=== PATIENT | male | born 1955 | race Caucasian/White ===

== ENCOUNTER 2025-04-21 19:04 | Emergency (ER) | payer MEDICARE, SELFPAY ==
[2025-04-21 19:19] VITALS: BP 170/92
[2025-04-21 19:49] LABS: Urine Character Clear (Clear)
[2025-04-21 20:02] LABS: Urine Squamous Cell 0-2 /LPF (Few); Urine White Cell 0-2 /HPF (0-5)
--- NOTE | 2025-04-21 21:38 | ED.GENMED ---
History of Present Illness
General
Chief Complaint: Male Genito-Urinary Symptoms
Source: patient
Exam Limitations: none
Time Seen by Provider: 04/21/25 19:21
Nursing documentation reviewed up to this point in time: agreed with
History of Present Illness
History of Present Illness:
Patient to ED with complaint of urinary retention. States he follows with urology in [facility]. He has a history of retention. Took Tamsulosin for many years. Med recently d/c'd by urology. He states he had an US today at visit in [place] and was told
there was sludge in bladder. States he drove home from [facility] and since arriving home he has not been able to void. Last output was 2PM. To ED for redman placement.
Past History
Past History
ED Past Medical History: None
Review of Systems
Review of Systems
Allergies reviewed?: Yes
All Other Systems: ROS reviewed and negative except as documented in HPI and ROS
Constitutional: Reports no symptoms
EENT: Reports no symptoms
Respiratory: Reports no symptoms
Cardiac: Reports no symptoms
ABD/GI: Reports no symptoms
: Reports difficulty voiding
Musculoskeletal: Reports no symptoms
Skin: Reports no symptoms
Neurological: Reports no symptoms
Psychiatric: Reports no symptoms
Phy Exam
General Physical Exam
General Presentation: moderate distress
General age: appears stated age
General Skin: warm and dry
General Habitus: normal
Gastrointestinal Exam
Gastrointestinal Exam: distended
Musculoskeletal Exam
Musculoskeletal Exam: full ROM and neuro vasc intact
Skin Exam
Skin Exam: normal color and warm/dry
Psychiatric Exam
Psychiatric Exam: normal mood/affect
Course
Orders/Labs/Results
Orders:
Orders
04/21/25 19:24
Redman Placement- Treatment ONCE
Reason for insertion: Acute Retention
04/21/25 19:42
Urinalysis Reflex To Culture Urgent
Date Specimen was Collected: 04/21/25
Time Specimen was Collected: 19:26
Urine Microscopic Reflex Cult Urgent
Abnormal Lab Results
04/21/25
19:42
Urine Ketones 1+ A
(Negative)
Ur Occult Blood Reflex 4+ A
(Negative)
Urine RBC 3-6 A /HPF
(0-2)
Urine Bacteria (Reflex) Few A
(Negative)
Vital Signs
Initial and Last Documented VS:
Initial Vital Signs
Temp Pulse Resp BP Pulse Ox
98.3 F 105 20 170/92 98
04/21/25 19:19 04/21/25 19:19 04/21/25 19:19 04/21/25 19:19 04/21/25 19:19
Last Documented Vital Signs
Temp Pulse Resp BP Pulse Ox
98.3 F 105 20 170/92 98
04/21/25 19:19 04/21/25 19:19 04/21/25 19:19 04/21/25 19:19 04/21/25 19:19
*Pulse Oximetry
SaO2: 98
Oxygen Mode of Delivery: Room air
Patient hypoxic: no
*Critical Care Note
Total Time (30-74mins, 75-104mins- exclusive of procedures): Not Applicable
Update Note
Update Note:
Patient to ED with complaint of urinary retention. 1L noted on bladder scan. Redman placed bedside by RN, draining clear yellow urine. No UTI reflected on UA. He is now symptom free. WIll discharge home. He spoke with his urologist and he will
follow up on Monday for redman removal.
ED Attending Note
-
Portions of this chart may have been created with voice recognition software.� Occasional wrong word or��sound alike� substitutions may have occurred due to the inherent limitations of voice recognition software.
Discharge Plan
Departure
Patient Disposition: Home (Routine Discharge)
Date of Disposition: 04/21/25
Time of Disposition: 20:08
Patient with high blood pressure during this ER visit?: No
Condition: Good
Covid-19: Not Applicable
Discharge Problem:
Acute urinary retention
Instructions: How to Care for Your Redman Catheter, Male, Urinary Retention (DC)
Activity Restrictions/Additional Instructions:
FOllow up with your urologist on Monday.
Interventions
Interventions:
*Risk Screen - Suicide Last Done: 04/21/25 19:23
*General Assessment Last Done: 04/21/25 19:23
*ED COVID-19 Vaccine History Last Done: 04/21/25 19:23
*Nursing Disposition Last Done: 04/21/25 20:38
ED-Male Genitourinary Assessment Last Done: 04/21/25 19:45
Discharge Date and Time
Discharge Date/Time: 04/21/25 21:06
Print Language: [place] CIT[place]
== END 2025-04-21 21:06 | disposition home or self-care (01) ==
LOC: EMR 19:04
PROVIDERS: Nurse Practitioner; EMERGENCY PHYSICIAN Student in an Organized Health Care Education/Training Program
DX: R33.9 Retention of urine, unspecified (principal)
CPT/HCPCS: 99283; 51702; 81003; 81015